=== PATIENT | female | born 1995 | race Caucasian/White ===

== ENCOUNTER 2017-04-24 14:00 | Emergency (ER) | payer OTHER ==
[~2017-04-24] VITALS: Ht 167.6 cm; Wt 75.3 kg
[2017-04-24 14:02] VITALS: BP 113/66; PULSE 78; TEMP 36.9; O2SAT 98; Ht 167.6 cm; Wt 75.3 kg
--- NOTE | 2017-04-24 14:58 | DIAGNOSTIC IMAGING REPORT ---
TWO VIEW CHEST CLINICAL HISTORY: Cough of 5 days' duration. FINDINGS: PA and lateral chest radiographs are obtained. No prior studies are available for comparison at the time of dictation. The cardiomediastinal silhouette is unremarkable. The lungs and pleural spaces are clear. There is no pneumothorax. The bony thorax appears intact. IMPRESSION: No active disease in the chest. Electronically signed by: Dirk Hua M.D. 04/24/2017 2:57 PM Dictated Date/Time: 04/24/2017 2:56 PM
--- NOTE | 2017-04-25 06:47 | EMERGENCY ROOM VISIT NOTE ---
ED Visit Note First contact with patient: 14:09 Chief Complaint: Cough and congestion. History of Present Illness: Historically patient reports she has a history of asthma, bronchitis and pneumonia. Patient reports that she has been having ongoing upper respiratory tract symptoms including productive cough, nasal drainage, chest congestion and sore throat for approximately 4-5 days. She reports initially her symptoms were mild and gradually increased in intensity. Patient mother insisted that she come to the hospital to be evaluated for pneumonia; patient did not feel this was needed. She reports her symptoms started with nasal drainage and sore throat and then she developed a cough productive of a greenish sputum and chest congestion. She is not identified any aggravating or alleviating factors related to her symptoms. She has not taken any medications for her symptoms prior to arrival at the hospital. Patient denies fevers, chills, sweats, skin eruptions, skin color changes, ear pain, sinus pain, painful talking, inability to swallow, drooling, neck pain/ stiffness, shortness of breath, wheezing, decreased appetite, abdominal pain, nausea, vomiting. Review of Systems: As noted above in history of present illness. 8 body systems were reviewed and found to be negative as noted above. Past Medical History: As previously noted. Current Medications: Patient denies. Allergies to Medications: Unspecified scabies cream. Social History: Patient is currently employed; she feels safe in her home environment; she denies tobacco use and admits to alcohol use. Physical Examination: Vital Signs: Date Time Temp Pulse Resp B/P (MAP) Pulse Ox O2 Delivery O2 Flow Rate FiO2 04/24/17 14:02 36.9 78 17 113/66 98 Room Air GENERAL: 22-year-old female in no acute distress, nontoxic-appearing, afebrile and hemodynamically stable. NEUROLOGICAL: Awake, alert and oriented to person, place and time. Answering questions appropriately and following commands. Normal gait. Good hand eye coordination. SKIN: Warm, dry and pink. No soft tissue eruptions or trauma noted. HEENT: Atraumatic and normocephalic. No erythema or tenderness over the frontal or maxillary sinuses. External ears are nontender. Auditory canals are pink and patent. Tympanic membranes are pearly gann with normal light reflex. No bulging or erythema but membranes. PERRLA. Sclera white and conjunctiva pink. No drainage from naris, but audible congestion. Oral cavity moist and pink. Airway is patent. Uvula is midline and no abscesses are seen. Pharynx is nonerythematous or edematous. Speech normal and clear. No lymphadenopathy. Trachea midline. No jugular venous distention. BACK: No tenderness over the bony spine. THORAX: Lungs sounds are clear to auscultation and equal bilaterally with symmetrical chest wall. No wheezing, rales or rhonchi. No crepitus, tenderness , subcutaneous air or deformities noted. No increased respiratory effort or rate. ABDOMEN: Flat, soft and nontender. Positive bowel sounds in all quadrants. No guarding, rigidity or organomegaly. EXTREMITIES: Moves all extremities well on command and with purpose. All distal neurovascular statuses are intact and equal bilaterally. No calf tenderness or cords. ED Course: Patient is assessed as noted above. Patient's medication list was reviewed. Chest X-Rays: Were read by myself and the radiologist showing no acute infiltrates, effusions or pneumothorax. Normal heart silhouette and bony anatomy. Patient was educated about today's findings and instructed on her treatment plan ; she verbalized understanding and agreement with this plan. Clinical Impression: Cough. Disposition: Patient discharged to home in stable condition; prior to departure she was reassessed and subjectively reported she was feeling well. Plan: Patient was encouraged to consider using [id number] decongestants or cough suppressants for her symptoms. Patient was encouraged to stay well-hydrated. Patient is encouraged to follow-up at [facility] if no better in 3-4 days. Patient was encouraged return ED for worsening cough, wheezing/shortness of breath, coughing up blood, fevers or any new/concerning symptoms.
== END 2017-04-24 15:18 | disposition home or self-care (01) ==
LOC: C.EDB 14:02 → C.EDD 15:18
DX: R05 Cough (principal); J45.909 Unspecified asthma, uncomplicated; F10.99 Alcohol use, unspecified with unspecified alcohol-induced disorder